=== PATIENT | female | born 1980 | race Caucasian/White ===

== ENCOUNTER → 2016-08-02 | Outpatient (CLI) | payer BC ==
[~2016-08-02] MED LIST: IBU800 M1 PO; LEVEMIR SQ; PERCOCET 325 MG1 TA2 PO; PRENATAL1 TA7 PO
== END ==
LOC: SUN.DIA 09:22
DX: O24.419 Gestational diabetes mellitus in pregnancy, unspecified control (principal); Z3A.31 31 weeks gestation of pregnancy; Z71.3 Dietary counseling and surveillance
CPT/HCPCS: G0108

== ENCOUNTER → 2016-08-09 | Outpatient (CLI) | payer BC | LOC: SUN.DIA 13:05 | DX: O24.419 Gestational diabetes mellitus in pregnancy, unspecified control (principal); Z3A.33 33 weeks gestation of pregnancy | CPT/HCPCS: G0108 ==

== ENCOUNTER → 2016-09-07 | Outpatient (CLI) | payer BC | LOC: SUN.DIA | DX: O24.419 Gestational diabetes mellitus in pregnancy, unspecified control (principal); Z3A.37 37 weeks gestation of pregnancy | CPT/HCPCS: G0108 ==

== ENCOUNTER 2016-09-12 12:23 | Outpatient (CLI) | payer BC ==
[~2016-09-12] VITALS: Ht 172.7 cm; Wt 84.5 kg
[~2016-09-12 12:23] MED LIST changes: -IBU800 M1 PO; -LEVEMIR SQ; -PERCOCET 325 MG1 TA2 PO
[2016-09-12 12:43] VITALS: BP 120/80; PULSE 77; TEMP 98.3
[2016-09-12] MEDS ORDERED: LEVEMIR SQ (12:51)
[2016-09-12 13:00] VITALS: BP 103/63; PULSE 73
[2016-09-12 13:30] VITALS: BP 109/73; PULSE 78
[2016-09-12 14:00] VITALS: BP 104/70; PULSE 69
[2016-09-12 14:30] VITALS: BP 100/64; PULSE 65
== END 2016-09-12 14:55 | disposition home or self-care (01) ==
LOC: LDRO 12:23
DX: O76 Abnormality in fetal heart rate and rhythm complicating labor and delivery (principal); Z3A.37 37 weeks gestation of pregnancy
CPT/HCPCS: J7120

== ENCOUNTER 2016-09-29 07:04 | Inpatient (IN) | payer BC ==
[2016-09-29] VITALS (63 sets, daily range): BP systolic 92–137; BP diastolic 53–88; PULSE 66–115; TEMP 97.8–98.2
[~2016-09-29] VITALS: Ht 172.8 cm; Wt 84.1 kg
[~2016-09-29 07:04] MED LIST changes: +LEVEMIR SQ
[2016-09-29 07:39] LABS: BASO # 0.1 (0.0-0.2); BASO % 0.4 % (0.0-2.0); EOS # 0.1 (0.0-0.7); EOS % 0.8 % (0-4.0); GRAN # 8.8 (1.4-6.5); GRAN % 75.5 % (42.2-75.2); HEMOGLOBIN 12.3 g/dl (12.5-16.0); LYMPH % 17.1 % (20.0-51.0); MEAN CELL VOLUME 88 fl (80.0-100.0); MEAN CORPUSCULAR HEMOGLOBIN 30 pg (27.0-31.0); MEAN CORPUSCULAR HGB CONC 34 g/dl (33.0-37.0); MEAN PLATELET VOLUME 11.5 fl (7.4-10.4); MONO # 0.6 (0.1-0.6); MONO % 5.5 % (1.7-9.3); PLATELET COUNT 183 K/mm3 (130-400); RED BLOOD COUNT 4.13 M/mm3 (4.10-5.30); REDCELL DISTRIBUTION WIDTH-CV 13.7 % (11.5-14.5); WHITE BLOOD COUNT 11.7 K/mm3 (4.8-10.8)
[2016-09-29 07:54] LABS: HEMATOCRIT 36.3 % (37.0-47.0)
[2016-09-30] VITALS (12 sets, daily range): BP systolic 93–127; BP diastolic 57–77; PULSE 50–113; TEMP 97.8–98
[2016-09-30 14:41] LABS: BASO # 0.1 (0.0-0.2); BASO % 0.3 % (0.0-2.0); EOS # 0.1 (0.0-0.7); EOS % 0.4 % (0-4.0); GRAN % 81.9 % (42.2-75.2); LYMPH % 10.2 % (20.0-51.0); MEAN CELL VOLUME 89 fl (80.0-100.0); MEAN CORPUSCULAR HGB CONC 34 g/dl (33.0-37.0); MEAN PLATELET VOLUME 11.6 fl (7.4-10.4); MONO # 1.3 (0.1-0.6); MONO % 6.7 % (1.7-9.3); PLATELET COUNT 177 K/mm3 (130-400); RED BLOOD COUNT 3.57 M/mm3 (4.10-5.30); REDCELL DISTRIBUTION WIDTH-CV 13.9 % (11.5-14.5); WHITE BLOOD COUNT 19.5 K/mm3 (4.8-10.8)
[2016-09-30 14:43] LABS: HEMATOCRIT 31.9 % (37.0-47.0); HEMOGLOBIN 10.8 g/dl (12.5-16.0); MEAN CORPUSCULAR HEMOGLOBIN 30 pg (27.0-31.0)
[2016-10-01 08:27] VITALS: BP 96/65; PULSE 78; TEMP 97.8
[2016-10-01 08:56] LABS: BASO # 0.1 (0.0-0.2); BASO % 0.4 % (0.0-2.0); EOS # 0.2 (0.0-0.7); EOS % 1.1 % (0-4.0); GRAN # 11.8 (1.4-6.5); GRAN % 75.7 % (42.2-75.2); LYMPH # 2.5 (1.2-3.4); LYMPH % 15.7 % (20.0-51.0); MEAN CELL VOLUME 92 fl (80.0-100.0); MEAN CORPUSCULAR HGB CONC 33 g/dl (33.0-37.0); MONO % 6.6 % (1.7-9.3); PLATELET COUNT 190 K/mm3 (130-400); RED BLOOD COUNT 3.82 M/mm3 (4.10-5.30); REDCELL DISTRIBUTION WIDTH-CV 14.4 % (11.5-14.5); WHITE BLOOD COUNT 15.6 K/mm3 (4.8-10.8)
[2016-10-01 08:58] LABS: HEMATOCRIT 35.2 % (37.0-47.0); HEMOGLOBIN 11.5 g/dl (12.5-16.0); MEAN CORPUSCULAR HEMOGLOBIN 30 pg (27.0-31.0)
[2016-10-01] MEDS ORDERED: IBU800 M1 PO (11:25)
[2016-10-01] MEDS ORDERED: PERCOCET 325 MG1 TA2 PO (11:25)
[2016-10-01 16:30] VITALS: BP 101/69; PULSE 71; TEMP 97.6
[2016-10-01 20:00] VITALS: BP 110/68; PULSE 74; TEMP 98
[2016-10-02 06:20] VITALS: BP 100/68; PULSE 64; TEMP 97.5
== END 2016-10-02 11:44 | disposition home or self-care (01) | DRG 765 ==
LOC: LDR 07:04 → OB 07:04
PROVIDERS: Obstetrics & Gynecology; Student in an Organized Health Care Education/Training Program
PROC: 10D00Z1 Extraction of Products of Conception, Low, Open Approach (ICD-10-PCS; principal; 2016-09-29)
PROC: 3E033VJ Introduction of Other Hormone into Peripheral Vein, Percutaneous Approach (ICD-10-PCS; 2016-09-29)
DX: O24.410 Gestational diabetes mellitus in pregnancy, diet controlled (principal); O36.0130 Maternal care for anti-D [Rh] antibodies, third trimester, not applicable or unspecified; O62.0 Primary inadequate contractions; O48.0 Post-term pregnancy; O09.813 Supervision of pregnancy resulting from assisted reproductive technology, third trimester; O34.13 Maternal care for benign tumor of corpus uteri, third trimester; D25.1 Intramural leiomyoma of uterus; Z3A.40 40 weeks gestation of pregnancy; Z37.0 Single live birth
CPT/HCPCS: J0690; J1885; J2175; J2270; J2370; J2400; J2405; J2590; J2791; J2795; J7030; J7120

== ENCOUNTER 2018-12-10 05:52 | Inpatient (IN) | payer BC ==
[~2018-12-10] VITALS: Ht 172.7 cm; Wt 83.2 kg
[2018-12-10] VITALS (18 sets, daily range): BP systolic 94–116; BP diastolic 48–76; PULSE 62–100; TEMP 97.1–98.4
[~2018-12-10 05:52] MED LIST changes: +IBU800 M1 PO; +PERCOCET 325 MG1 TA2 PO
--- NOTE | 2018-12-10 06:15 | NUR ---
Patient reports fasting blood sugar this morning was 81 per own glucometer.
[2018-12-10 06:38] LABS: BASO % 0.3 % (0.0-2.0); EOS # 0.1 (0.0-0.7); EOS % 0.8 % (0-4.0); GRAN # 8.7 (1.4-6.5); GRAN % 71.7 % (42.2-75.2); HEMOGLOBIN 12.1 g/dl (12.5-16.0); LYMPH # 2.5 (1.2-3.4); LYMPH % 20.2 % (20.0-51.0); MEAN CELL VOLUME 89 fl (80.0-100.0); MEAN CORPUSCULAR HEMOGLOBIN 29 pg (27.0-31.0); MEAN CORPUSCULAR HGB CONC 33 g/dl (33.0-37.0); MEAN PLATELET VOLUME 11.1 fl (7.4-10.4); MONO # 0.8 (0.1-0.6); MONO % 6.6 % (1.7-9.3); PLATELET COUNT 201 K/mm3 (130-400); RED BLOOD COUNT 4.12 M/mm3 (4.10-5.30); REDCELL DISTRIBUTION WIDTH-CV 14.1 % (11.5-14.5)
[2018-12-10 06:49] LABS: HEMATOCRIT 36.6 % (37.0-47.0)
[2018-12-10] MEDS ORDERED: LEVEMIR100 U/ML SQ (06:52)
--- NOTE | 2018-12-10 11:00 | NUR ---
1100- Ice pack to right side of incision per Pt request.
--- NOTE | 2018-12-10 11:30 | NUR ---
1130- BS 96, Pt used her own glucometer.
--- NOTE | 2018-12-10 15:05 | NUR ---
Patient took own blood sugar - 134.
[2018-12-11 05:30] VITALS: BP 100/64; PULSE 58; TEMP 98.7
[2018-12-11 08:30] VITALS: BP 99/68; PULSE 60; TEMP 97.8
[2018-12-11 16:15] VITALS: BP 108/83; PULSE 71; TEMP 98.1
[2018-12-11 19:45] VITALS: BP 109/88; PULSE 59; TEMP 98.7
[2018-12-12 08:00] VITALS: BP 107/69; PULSE 62; TEMP 97.8
--- NOTE | 2018-12-12 08:00 | NUR ---
Patient took own fasting blood sugar - 79 per own glucometer.
[2018-12-12] MEDS ORDERED: IBU800 M1 PO (08:58)
[2018-12-12] MEDS ORDERED: PERCOCET 325 MG1 TA2 PO (08:58)
== END 2018-12-12 11:20 | disposition home or self-care (01) | DRG 788 ==
LOC: OB 05:52 → LDR 06:37 → OB 12-12 11:20
PROVIDERS: ADMIT Student in an Organized Health Care Education/Training Program
PROC: 10D00Z1 Extraction of Products of Conception, Low, Open Approach (ICD-10-PCS; principal; 2018-12-10)
DX: O34.219 Maternal care for unspecified type scar from previous cesarean delivery (principal); Z3A.39 39 weeks gestation of pregnancy; Z37.0 Single live birth; O24.429 Gestational diabetes mellitus in childbirth, unspecified control; O26.893 Other specified pregnancy related conditions, third trimester; Z67.91 Unspecified blood type, Rh negative
CPT/HCPCS: J0690; J1885; J2270; J2370; J2405; J2590; J2791; J7120

== ENCOUNTER 2021-01-10 05:36 | Inpatient (IN) | payer BC ==
[~2021-01-10] VITALS: Ht 172.7 cm; Wt 83.2 kg
[2021-01-10] VITALS (18 sets, daily range): BP systolic 89–106; BP diastolic 43–92; PULSE 51–73; TEMP 97.7–98.3
[~2021-01-10 05:36] MED LIST changes: +LEVEMIR100 U/ML SQ
[2021-01-10 06:11] LABS: BASO % 0.3 % (0.0-2.0); EOS # 0.1 (0.0-0.7); EOS % 0.7 % (0-4.0); GRAN # 7.6 (1.4-6.5); GRAN % 69.7 % (42.2-75.2); HEMOGLOBIN 12.3 g/dl (12.5-16.0); LYMPH # 2.4 (1.2-3.4); LYMPH % 21.7 % (20.0-51.0); MEAN CELL VOLUME 88 fl (80.0-100.0); MEAN CORPUSCULAR HEMOGLOBIN 30 pg (27.0-31.0); MEAN CORPUSCULAR HGB CONC 34 g/dl (33.0-37.0); MEAN PLATELET VOLUME 10.8 fl (7.4-10.4); MONO # 0.8 (0.1-0.6); PLATELET COUNT 198 K/mm3 (130-400); RED BLOOD COUNT 4.13 M/mm3 (4.10-5.30); REDCELL DISTRIBUTION WIDTH-CV 14.1 % (11.5-14.5)
[2021-01-10 06:14] LABS: HEMATOCRIT 36.5 % (37.0-47.0)
[2021-01-11 01:00] VITALS: BP 86/61; PULSE 54; TEMP 98
[2021-01-11 08:00] VITALS: BP 100/66; PULSE 66; TEMP 98.4
--- NOTE | 2021-01-11 10:24 | NUR ---
Several visit attempts; Physician with patient. [employer] left card of congratulations for the the of their daughter and information regarding the availability of spiritual care at [facility].
[2021-01-11 16:00] VITALS: BP 104/74; PULSE 62; TEMP 97.2
[2021-01-11 19:00] VITALS: BP 98/67; PULSE 67; TEMP 97.6
[2021-01-12 07:00] VITALS: BP 119/68; PULSE 60; TEMP 97.6
[2021-01-12 12:30] VITALS: BP 96/69; PULSE 67; TEMP 97.6
[2021-01-12] MEDS ORDERED: IBU800 M1 PO (12:40)
[2021-01-12] MEDS ORDERED: PERCOCET 325 MG1 TA2 PO (12:40)
--- NOTE | 2021-01-12 13:35 | NUR ---
DISCHARGE INSTRUCTIONS REVIEWED AND UNDERSTOOD BY PT AT THIS TIME INCLUDING ALL FOLLOW UP APPOINTMENTS. DENIES FURTHER QUESTIONS OR CONCERNS. STABLE CONDITION UPON DC. AMBULATORY TO POV WITH SPOUSE AND NEW INFACT IN [facility].
== END 2021-01-12 13:35 | disposition home or self-care (01) | DRG 787 ==
LOC: OB 05:36
PROVIDERS: ADMIT Student in an Organized Health Care Education/Training Program
PROC: 10D00Z1 Extraction of Products of Conception, Low, Open Approach (ICD-10-PCS; principal; 2021-01-11)
PROC: 3E0234Z Introduction of Serum, Toxoid and Vaccine into Muscle, Percutaneous Approach (ICD-10-PCS; 2021-01-11)
DX: O34.211 Maternal care for low transverse scar from previous cesarean delivery (principal); G12.9 Spinal muscular atrophy, unspecified; O99.354 Diseases of the nervous system complicating childbirth; O24.424 Gestational diabetes mellitus in childbirth, insulin controlled; O34.13 Maternal care for benign tumor of corpus uteri, third trimester; D25.9 Leiomyoma of uterus, unspecified; Z3A.39 39 weeks gestation of pregnancy; Z37.0 Single live birth; Z79.4 Long term (current) use of insulin; Z79.82 Long term (current) use of aspirin
CPT/HCPCS: J0171; J0690; J1100; J1885; J2370; J2405; J2590; J2791; J7120

== ENCOUNTER → 2021-08-24 | Outpatient (CLI) | payer BC | LOC: MC.RAD 12:48 | DX: N63.13 Unspecified lump in the right breast, lower outer quadrant (principal); N64.4 Mastodynia ==

== ENCOUNTER → 2023-01-24 | Outpatient (CLI) | payer BC | LOC: CANSCHCLI → MC.RAD 08:05 | DX: Z12.31 Encounter for screening mammogram for malignant neoplasm of breast (principal) ==

== ENCOUNTER → 2024-01-30 | Outpatient (CLI) | payer BC | LOC: MC.RAD 07:55 | DX: Z12.31 Encounter for screening mammogram for malignant neoplasm of breast (principal) ==